=== PATIENT | male | born 1980 ===

== ENCOUNTER 2017-03-19 17:32 | Emergency (ER) | payer SELFPAY ==
[2017-03-19 17:34] VITALS: BMI 30.5
[2017-03-19 17:52] VITALS: BP 143/84; PULSE 110; RESP 15; TEMP 99.1; O2SAT 98
--- NOTE | 2017-03-19 18:05 | ED PDOC ---
Arrival/HPI - General Chief Complaint: Chest Pain Time Seen by Provider: 03/19/17 18:00 Historian: Patient - History of Present Illness Narrative History of Present Illness (Text): 03/19/17 17:56 A 37 year old male, whose past medical history includes asthma and bronchitis, who presents the emergency department complaining of a productive cough with shortness of breath for the past 2 days. He notes every time he coughs he has chest pain. Patient has tried using him inhaler at home but it has not brought him any relief. patient denies any fever, nausea, vomiting or other complaints. He says symptoms are identical to previous bronchitis episodes. Patient does not want pain medication at this time. PMD: None Time/Duration: Other (2 days) Quality: Other Activities at Onset: Rest Context: Home Past Medical History - Provider Review Nursing Documentation Reviewed: Yes - Infectious Disease Hx of Infectious Diseases: None - Tetanus Immunization Tetanus Immunization: Up to Date - Psychiatric Hx Depression: No Hx Substance Use: No - Surgical History Hx Orthopedic Surgery: Yes (right wrist) - Suicidal Assessment Feels Threatened In Home Enviroment: No Family/Social History - Physician Review Nursing Documentation Reviewed: Yes Family/Social History: Unknown Family HX Smoking Status: Never Smoked Hx Alcohol Use: No Hx Substance Use: No Hx Substance Use Treatment: No Allergies/Home Meds Allergies/Adverse Reactions: Allergies No Known Allergies Allergy (Verified 03/19/17 17:37) Review of Systems - Physician Review All systems were reviewed & negative as marked: Yes - Review of Systems Constitutional: absent: Fevers Respiratory: SOB, Cough, Sputum Cardiovascular: Chest Pain Physical Exam Vital Signs Reviewed: Yes Vital Signs Temp Pulse Resp BP Pulse Ox 03/19/17 17:51 99.1 F 110 H 15 143/84 98 Temperature: Afebrile Blood Pressure: Normal Pulse: Tachycardic Respiratory Rate: Normal Appearance: Positive for: Well-Appearing, Non-Toxic, Comfortable Pain Distress: None Mental Status: Positive for: Alert and Oriented X 3 - Systems Exam Head: Present: Atraumatic, Normocephalic Pupils: Present: PERRL Extroacular Muscles: Present: EOMI Conjunctiva: Present: Normal Mouth: Present: Moist Mucous Membranes Neck: Present: Normal Range of Motion Respiratory/Chest: Present: Good Air Exchange, Wheezes (mild scattered wheezing) , Decreased Breath Sounds. No: Respiratory Distress, Accessory Muscle Use Cardiovascular: Present: Normal S1, S2, Tachycardic. No: Murmurs Abdomen: Present: Normal Bowel Sounds. No: Tenderness, Distention, Peritoneal Signs Back: Present: Normal Inspection Upper Extremity: Present: Normal Inspection. No: Cyanosis, Edema Lower Extremity: Present: Normal Inspection. No: Edema Neurological: Present: GCS=15, CN II-XII Intact, Speech Normal Skin: Present: Warm, Dry, Normal Color. No: Rashes Psychiatric: Present: Alert, Oriented x 3, Normal Insight, Normal Concentration Medical Decision Making ED Course and Treatment: EKG: Ordered, reviewed, and independently interpreted the EKG. Rate : 107 BPM Rhythm : Sinus tachycardia Interpretation : Normal axis, normal intervals, no acute ischemia 03/19/17 19:36 Chest X-ray: Creator : Jared Dominguez MD COMPARISON: No prior. FINDINGS: LUNGS: No active pulmonary disease. PLEURA: No significant pleural effusion identified. No pneumothorax apparent. CARDIOVASCULAR: No radiographic findings to suggest acute or significant cardiovascular disease. OSSEOUS STRUCTURES: No significant abnormalities. VISUALIZED UPPER ABDOMEN: Normal. OTHER FINDINGS: None. IMPRESSION: No active disease. 03/19/17 19:36 On re-evaluation, the patient feels better and is in no acute distress. I have discussed the results and plan with the patient, who expresses understanding. Patient in agreement with plan to discharged home. Patient is stable for discharge. Patient was instructed to follow up with physician/clinic in 1-2 days or return if symptoms worsen or new concerning symptoms arise. - RAD Interpretation Radiology Orders: 03/19/17 18:01 CHEST TWO VIEWS (PA/LAT) [RAD] Stat - Medication Orders Current Medication Orders: Discontinued Medications Albuterol/Ipratropium (Duoneb 3 Mg/0.5 Mg (3 Ml) Ud) 3 ml IH Q15M HILDA Stop: 03/19/17 18:31 Last Admin: 03/19/17 18:55 Dose: 3 ml Prednisone (Prednisone Tab) 40 mg PO STAT STA Stop: 03/19/17 18:01 Last Admin: 03/19/17 18:39 Dose: 40 mg - Scribe Statement The provider has reviewed the documentation as recorded by the Marylin López Provider Scribe Attestation: All medical record entries made by the Scribe were at my direction and personally dictated by me. I have reviewed the chart and agree that the record accurately reflects my personal performance of the history, physical exam, medical decision making, and the department course for this patient. I have also personally directed, reviewed, and agree with the discharge instructions and disposition. Disposition/Present on Arrival - Present on Arrival Any Indicators Present on Arrival: No History of DVT/PE: No History of Uncontrolled Diabetes: No Urinary Catheter: No History of Decub. Ulcer: No History Surgical Site Infection Following: None - Disposition Have Diagnosis and Disposition been Completed?: Yes Diagnosis: Asthma exacerbation Disposition: HOME/ ROUTINE Disposition Time: 19:36 Condition: STABLE Discharge Instructions (ExitCare): Asthma (ED) Additional Instructions: Please follow up with your doctor. Return to the ER for any worsening symptoms or for any other concerns. Prescriptions: Albuterol HFA [Ventolin HFA 90 mcg/actuation (8 g)] 1 - 2 puff IH Q6H PRN #1 inhaler PRN Reason: Wheezing Azithromycin 250 mg PO DAILY #6 tab Prednisone [Deltasone] 40 mg PO DAILY #8 tablet Referrals: Mary Jo Arzate, [Primary Care Provider] - Follow up with primary
[2017-03-19] MEDS: Albuterol-Ipratrop 3 mg / 0.5 (3 ml) UD IH SCH ×2 (18:39→18:55)
--- NOTE | 2017-03-19 18:52 | RAD ---
HISTORY: Cough, chest pain. COMPARISON: No prior. TECHNIQUE: Chest PA and lateral FINDINGS: LUNGS: No active pulmonary disease. PLEURA: No significant pleural effusion identified. No pneumothorax apparent. CARDIOVASCULAR: No radiographic findings to suggest acute or significant cardiovascular disease. OSSEOUS STRUCTURES: No significant abnormalities. VISUALIZED UPPER ABDOMEN: Normal. OTHER FINDINGS: None. IMPRESSION: No active disease.
--- NOTE | 2017-03-19 20:32 | CARD ---
APPROVED REPORT EKG Measurement Heart [id number] <Conclusion> Sinus tachycardia Possible Left atrial enlargement Borderline ECG
== END 2017-03-19 19:42 | disposition home or self-care (01) ==
LOC: ED 17:32
DX: J45.901 Unspecified asthma with (acute) exacerbation (principal)

== ENCOUNTER 2019-02-11 14:58 | Emergency (ER) | payer MEDICAID ==
[2019-02-11 15:23] VITALS: TEMP 98.4; O2SAT 96; BMI 31.8
--- NOTE | 2019-02-11 15:44 | ED PDOC ---
Arrival/HPI - General Chief Complaint: Chest Pain Time Seen by Provider: 02/11/19 15:00 Historian: Patient - History of Present Illness Narrative History of Present Illness (Text): 02/11/19 15:33 39 year old M with pmh of hypothyroidism and asthma presents with chief complaint of chest pain radiating from middle of chest to left side since this morning. Patient also complains blurry vision and left arm weakness. He denies taking any medication to relieve chest pain. Patient denies any recent colds, fevers, chills, headache, shortness of breath, cough, diaphoresis, abdominal pain, nausea, vomiting, diarrhea, back pain, neck pain, or any other complaint. Patient works as a spindle plumber. Time/Duration: 24 hours Symptom Onset: Sudden Symptom Course: Unchanged Activities at Onset: Light Context: Home Past Medical History - Provider Review Nursing Documentation Reviewed: Yes - Infectious Disease Hx of Infectious Diseases: None - Tetanus Immunization Tetanus Immunization: Up to Date - Cardiac Hx Cardiac Disorders: No - Pulmonary Hx Respiratory Disorders: No - Psychiatric Hx Depression: No Hx Substance Use: No - Surgical History Hx Orthopedic Surgery: Yes (right wrist) - Suicidal Assessment Feels Threatened In Home Enviroment: No Family/Social History - Physician Review Nursing Documentation Reviewed: Yes Family/Social History: Unknown Family HX Smoking Status: Never Smoked Hx Alcohol Use: No Hx Substance Use: No Hx Substance Use Treatment: No Allergies/Home Meds Allergies/Adverse Reactions: Allergies No Known Allergies Allergy (Verified 03/19/17 17:37) Review of Systems - Physician Review All systems were reviewed & negative as marked: Yes - Review of Systems Constitutional: absent: Fevers ENT: absent: Sore Throat, Rhinorrhea, Sinus Congestion Respiratory: absent: Cough, Wheezing Cardiovascular: Chest Pain. absent: SILVERIO, Syncope Gastrointestinal: absent: Abdominal Pain, Diarrhea, Nausea, Vomiting, Hematochezia, Hematemesis Genitourinary Male: absent: Dysuria, Hematuria Musculoskeletal: absent: Arthralgias, Back Pain, Neck Pain, Myalgias Skin: absent: Rash, Laceration, Ulcer, Cellulitis Neurological: absent: Headache, Dizziness Physical Exam Vital Signs Reviewed: Yes Vital Signs Temp Pulse Resp BP Pulse Ox 02/11/19 15:12 98.4 F 90 17 120/81 96 Temperature: Afebrile Blood Pressure: Normal Pulse: Regular Respiratory Rate: Normal Appearance: Positive for: Well-Appearing, Non-Toxic, Comfortable Pain Distress: None Mental Status: Positive for: Alert and Oriented X 3 - Systems Exam Head: Present: Atraumatic, Normocephalic Pupils: Present: PERRL Extroacular Muscles: Present: EOMI Conjunctiva: Present: Normal Mouth: Present: Moist Mucous Membranes Neck: Present: Normal Range of Motion Respiratory/Chest: Present: Clear to Auscultation, Good Air Exchange, Tender to Palpation (Reproductive chest wall tenderness to palpatation @ sternum). No: Respiratory Distress, Accessory Muscle Use Cardiovascular: Present: Regular Rate and Rhythm, Normal S1, S2. No: Murmurs Abdomen: No: Tenderness, Distention, Peritoneal Signs, Rebound, Guarding Back: Present: Normal Inspection Upper Extremity: Present: Normal Inspection. No: Cyanosis, Edema Lower Extremity: Present: Normal Inspection. No: Edema Neurological: Present: GCS=15, CN II-XII Intact, Speech Normal Skin: Present: Warm, Dry, Normal Color. No: Rashes Psychiatric: Present: Alert, Oriented x 3, Normal Insight, Normal Concentration Medical Decision Making ED Course and Treatment: 02/11/19 15:44 Impression: 39 year old M presents with chief complaint of chest pain radiating from middle of chest to left side since this morning. HEART Score: 0 Plan: -- Labs -- Chest X-ray -- Aspirin -- Urinalysis -- Reassess and disposition Prior Visits: Notes and results from previous visits were reviewed. Progress Notes: 02/11/19 16:49 Labs reviewed with no acute abnormalities with negative troponin and unremarkable CXR. Shared decision making for patient to follow up with the cardiogist on an outpatient basis. Opportunity for questions given and answered. He is stable for discharge. - Lab Interpretations Lab Results: 02/11/19 16:00 02/11/19 16:00 Lab Results 02/11/19 16:00: PT 11.7, INR 1.05, APTT 32.6 02/11/19 16:00: Sodium 138, Potassium 4.5, Chloride 106, Carbon Dioxide 23, Anion Gap 14, BUN 29 H, Creatinine 1.2, Est GFR ( Amer) > 60, Est GFR (Non-Af Amer) > 60, Random Glucose 91, Calcium 9.1, Magnesium 1.9, Total Bilirubin 0.5, AST 34, ALT 28, Alkaline Phosphatase 95, Troponin I < 0.01, NT-Pro-B Natriuret Pep 27.9, Total Protein 7.3, Albumin 4.0, Globulin 3.3, Albumin/Globulin Ratio 1.2 02/11/19 16:00: WBC 7.7, RBC 5.36, Hgb 17.0, Hct 48.8, MCV 91.0, MCH 31.7, MCHC 34.8, RDW 13.3, Plt Count 217, MPV 11.5 H, Neut % (Auto) 66.5, Lymph % (Auto) 23.4, Towner % (Auto) 8.2 H, Eos % (Auto) 1.6, Baso % (Auto) 0.3, Lymph # (Auto) 1.8, Towner # (Auto) 0.6, Eos # (Auto) 0.1, Baso # (Auto) 0.02, Absolute Neuts (auto) 5.13 I have reviewed the lab results: Yes - RAD Interpretation Narrative RAD Interpretations (Text): 02/11/19 15:52 Chest X-ray -- No active disease. No significant interval change compared to the prior examination Radiology Orders: 02/11/19 15:23 CHEST PORTABLE [RAD] Stat Check Examiner: Radiologist - Medication Orders Current Medication Orders: Discontinued Medications Aspirin (Aspirin) 325 mg PO STAT STA Stop: 02/11/19 15:22 - Scribe Statement The provider has reviewed the documentation as recorded by the Marylin Macdonald All medical record entries made by the Deanibre were at my direction and personally dictated by me. I have reviewed the chart and agree that the record accurately reflects my personal performance of the history, physical exam, medical decision making, and the department course for this patient. I have also personally directed, reviewed, and agree with the discharge instructions and disposition. Disposition/Present on Arrival - Present on Arrival Any Indicators Present on Arrival: No History of DVT/PE: No History of Uncontrolled Diabetes: No Urinary Catheter: No History of Decub. Ulcer: No History Surgical Site Infection Following: None - Disposition Have Diagnosis and Disposition been Completed?: Yes Diagnosis: Musculoskeletal chest pain Disposition: HOME/ ROUTINE Disposition Time: 16:56 Patient Plan: Discharge Condition: STABLE Discharge Instructions (ExitCare): Chest Pain (ED), Angina (DC), Chest Pain That Is Not Caused by the Heart (DC) Print Language: BULGARIAN Additional Instructions: All medical record entries made by the Scribe were at my direction and pe rsonally dictated by me. I have reviewed the chart and agree that the record accurately reflects my personal performance of the history, physical exam, medical decision making, and the department course for this patient. I have also personally directed, reviewed, and agree with the discharge instructions and disposition. Please follow up with your PCP in 1 week Do try to schedule an appointment with the frit burner listed on your discharge paperwork Referrals: Ron Upton MD [Staff Provider] - Follow up with primary Forms: [employer] ([place]), WORK NOTE
--- NOTE | 2019-02-11 15:48 | RAD ---
Date of service: 02/11/2019 HISTORY: Chest pain COMPARISON: 03/19/2017 FINDINGS: LUNGS: No active pulmonary disease. PLEURA: No significant pleural effusion identified, no pneumothorax apparent. CARDIOVASCULAR: No atherosclerotic calcification present Normal. OSSEOUS STRUCTURES: No significant abnormalities. VISUALIZED UPPER ABDOMEN: Normal. OTHER FINDINGS: None. IMPRESSION: No active disease. No significant interval change compared to the prior examination(s).
[2019-02-11 16:04] LABS: BASO # 0.02 K/mm3 (0.0-2.0); BASO % 0.3 % (0.0-3.0); EOS # 0.1 (0.0-0.7); EOS % 1.6 % (1.5-5.0); LYMPH # 1.8 (1.2-3.4); LYMPH % 23.4 % (22.0-35.0); MEAN CORPUSCULAR HEMOGLOBIN 31.7 pg (25.0-35.0); MEAN CORPUSCULAR HGB CONC 34.8 g/dl (31.0-37.0); MEAN PLATELET VOLUME 11.5 fl (7.0-11.0); MONO # 0.6 (0.1-0.6); MONO % 8.2 % (1.0-6.0); RBC 5.36 10^6/uL (3.5-6.1); RED CELL DISTRIBUTION WIDTH 13.3 % (11.5-14.5); WHITE BLOOD COUNT 7.7 10^3/uL (4.5-11.0)
[2019-02-11 16:13] LABS: BLOOD UREA NITROGEN 29 mg/dL (7-21); CALCIUM 9.1 mg/dL (8.4-10.5); GFR NON-AFRICAN AMERICAN > 60; INR 1.05; PARTIAL THROMBOPLASTIN TIME 32.6 Seconds (26.9-38.3); PROTHROMBIN TIME 11.7 SECONDS (9.4-12.5)
[2019-02-11 16:16] LABS: ALB/GLOB RATIO 1.2 (1.1-1.8); ALT/SGPT 28 U/L (7-56); AST/SGOT 34 U/L (17-59)
[2019-02-11 16:25] LABS: B-TYPE NATRIURETIC PEPTIDE 27.9 pg/mL (0-450)
[2019-02-11 16:29] LABS: TROPONIN I < 0.01 ng/mL
[2019-02-11 17:06] VITALS: BP 135/76; PULSE 85; RESP 18
--- NOTE | 2019-02-11 17:50 | CARD ---
APPROVED REPORT Date of service: 02/11/2019 EKG Measurement Heart [id number] ID [id number] <Conclusion> Normal sinus rhythm Normal ECG
== END 2019-02-11 17:09 | disposition home or self-care (01) ==
LOC: ED 14:58
DX: R07.89 Other chest pain (principal); E03.9 Hypothyroidism, unspecified